=== PATIENT | female | born 1945 | race Caucasian/White ===

== ENCOUNTER 2018-06-17 01:22 | Outpatient (CLI) | payer MEDICARE, OTHER, SELFPAY ==
[2018-06-17 13:06] LABS: BUN 15 mg/dL (7-18); CREATININE 0.61 mg/dL (0.55-1.02); Calcium 9.7 mg/dL (8.5-10.1); Chloride 96 mmol/L (98-107); Glucose 120 mg/dL (70-100); Potassium 4.2 mmol/L (3.5-5.1); Sodium 139 mmol/L (136-145)
== END 2018-06-17 01:42 ==
DX: J44.9 Chronic obstructive pulmonary disease, unspecified (principal); I10 Essential (primary) hypertension; I25.10 Atherosclerotic heart disease of native coronary artery without angina pectoris
CPT/HCPCS: 36415; 80048

== ENCOUNTER 2018-12-22 01:08 | Outpatient (CLI) | payer MEDICARE, OTHER, SELFPAY ==
--- NOTE | 2018-12-22 14:05 | MERGE_ITS ---
*[facility]* *[facility]* [address] [place] [address] Date of study: 12/22/2018 Transthoracic Echocardiography M-mode, complete 2D, complete spectral Doppler, and color Doppler *STUDY CONCLUSIONS* Summary: 1. Left ventricle: The cavity size was normal. Systolic function was hyperdynamic. The estimated ejection fraction was 65-70%. Findings consistent with diastolic dysfunction. Doppler parameters are consistent with high ventricular filling pressure. Stroke volume/bsa (LVOT, Doppler): 50ml/m^2. 2. Aortic valve: There was moderate to severe stenosis. There was mild regurgitation. Peak velocity (S): 3.4m/sec. Mean gradient (S): 29.6mm Hg. VTI ratio of LVOT to aortic valve: 0.28. Valve area (VTI): 0.8cm^2. Indexed valve area (Vmean): 0.6cm^2/m^2. 3. Right ventricle: The cavity size was normal. Wall thickness was normal. Systolic function was normal. 4. Atrial septum: No defect or patent foramen ovale was identified. 5. Tricuspid valve: There was moderate regurgitation. 6. Pulmonary arteries: Pulmonary systolic pressure was in the range of 40mm Hg to 50mm Hg. 7. Inferior vena cava: The vessel was patent and normal in size. The respirophasic diameter changes were in the normal range (greater than or equal to 50%), consistent with normal central venous pressure. *PATIENT PRESENTATION* Height: 149.9cm ((59in) ) S/D Pressure: 132 / 60 Weight: 47.6kg ((104.8lb) ) BSA: 1.41m^2 Test start time: 02:10 PM. Test stop time: 03:15 PM. PERFORMING Unknown PERFORMING [facility] ORDERING Faye Gupta REFERRING Faye Gupta BALLET SOLOIST Geeta Bertha, RT (R)(CT), [facility] *PROCEDURE DATA* Procedure information: This study was interpreted by [facility]. Pertinent images and digital data are archived for permanent storage and are available for subsequent review. Comparison was made to the study of December 2016. Study status: Routine. Transthoracic echocardiography. M-mode, complete 2D, complete spectral Doppler, and color Doppler. A Transthoracic Echocardiogram was performed. Scanning was performed from the parasternal, apical, subcostal, and suprasternal notch acoustic windows. Images were obtained using an [id number] cardiac ultrasound machine. Image quality was good. Study completion: The patient tolerated the procedure well. History: PMH: Screening-COPD and Cough. ASCVD I25.10. *CARDIAC ANATOMY* Left ventricle: The cavity size was normal. Systolic function was hyperdynamic. The estimated ejection fraction was 65-70%. The tissue Doppler parameters were abnormal. Findings consistent with diastolic dysfunction. Doppler parameters are consistent with high ventricular filling pressure. Aortic valve: Severely thickened, severely calcified leaflets. Doppler: There was moderate to severe stenosis. There was mild regurgitation. VTI ratio of LVOT to aortic valve: 0.28. Valve area (VTI): 0.8cm^2. Indexed valve area (VTI): 0.6cm^2/m^2. Peak velocity ratio of LVOT to aortic valve: 0.28. Valve area (Vmax): 0.8cm^2. Indexed valve area (Vmax): 0.6cm^2/m^2. Mean velocity ratio of LVOT to aortic valve: 0.27. Valve area (Vmean): 0.8cm^2. Indexed valve area (Vmean): 0.6cm^2/m^2. Mean gradient (S): 29.6mm Hg. Peak gradient (S): 46.9mm Hg. Aorta: Aortic root: The aortic root was normal in size. Ascending aorta: The ascending aorta was normal in size. Mitral valve: Doppler: There was no evidence for stenosis. There was no significant regurgitation. Valve area by pressure half-time: 3.7cm^2. Indexed valve area by pressure half-time: 2.6cm^2/m^2. Peak gradient (D): 3.9mm Hg. Left atrium: The atrium was normal in size. Atrial septum: No defect or patent foramen ovale was identified. Right ventricle: The cavity size was normal. Wall thickness was normal. Systolic function was normal. Pulmonic valve: Doppler: There was no evidence for stenosis. There was mild regurgitation. Tricuspid valve: Doppler: There was moderate regurgitation. Pulmonary artery: Poorly visualized. Pulmonary systolic pressure was in the range of 40mm Hg to 50mm Hg. Right atrium: The atrium was normal in size. Pericardium: There was no pericardial effusion. Systemic veins: Inferior vena cava: Well visualized. The vessel was patent and normal in size. The respirophasic diameter changes were in the normal range (greater than or equal to 50%), consistent with normal central venous pressure. Baseline ECG: Normal sinus rhythm. Measurements Left ventricle Value 12/27/2016 Reference LV ID, ED, PLAX 4.1 cm 4.3 3.5 - 6.0 LV ID, ES, PLAX 2.2 cm 2.8 2.1 - 4.0 LV PW thickness, ED, PLAX 1.1 cm 1.0 LV end-diastolic volume, 65 ml 27 1-p A2C LV ejection fraction, 1-p 62 % 57 A2C LV end-diastolic volume, 44 ml 46 1-p A4C LV ejection fraction, 1-p 63 % 70 A4C LV e', lateral 0.055 m/sec LV E/e', lateral 18 LV e', medial 0.074 m/sec LV E/e', medial 13 LV e', average 0.065 m/sec LV E/e', average 15 Ventricular septum Value 12/27/2016 Reference IVS thickness, ED, PLAX 1.1 cm 0.8 LVOT Value 12/27/2016 Reference LVOT ID, A-P 1.9 cm 1.9 LVOT area 2.9 cm^2 2.8 LVOT peak velocity, S 0.96 m/sec 1.12 LVOT mean velocity, S 0.71 m/sec LVOT VTI, S 24.4 cm 24.6 LVOT peak gradient, S 3.7 mm Hg 5 LVOT mean gradient, S 2.2 mm Hg 3 Stroke volume (SV), LVOT 71 ml DP Stroke index (SV/bsa), 50 ml/m^2 LVOT DP Aortic valve Value 12/27/2016 Reference Aortic valve peak 3.4 m/sec 3.1 velocity, S Aortic valve mean 2.62 m/sec velocity, S Aortic valve VTI, S 86.0 cm Aortic mean gradient, S 29.6 mm Hg 21 Aortic peak gradient, S 46.9 mm Hg 37.2 VTI ratio, LVOT/AV 0.28 0.35 Aortic valve area, VTI 0.8 cm^2 1 Velocity ratio, peak, 0.28 0.37 LVOT/AV Aortic valve area, peak 0.8 cm^2 1 velocity Velocity ratio, mean, 0.27 LVOT/AV Aortic valve area, mean 0.8 cm^2 velocity Aortic valve area/bsa, 0.6 cm^2/m^2 mean velocity Aorta Value 12/27/2016 Reference Aortic root ID, ED 2.6 cm 2.8 Ascending aorta ID, A-P, S 2.9 cm 2.8 Left atrium Value 12/27/2016 Reference LA ID/bsa, A-P 2.1 cm/m^2 <=2.2 LA area, ES, A4C 16.3 cm^2 15 8.8 - 23.4 LA area, ES, A2C 12 cm^2 LA volume/bsa, ES, 1-p A4C 33 ml/m^2 29 LA volume, ES, 2-p 37 ml LA volume/bsa, ES, 2-p 26 ml/m^2 LA/aortic root ratio 1.17 Mitral valve Value 12/27/2016 Reference Mitral E-wave peak 0.98 m/sec 1.01 velocity Mitral A-wave peak 1.19 m/sec 1.1 velocity Mitral deceleration time 203 ms 150 - 230 Mitral pressure half-time 59 ms 76 Mitral peak gradient, D 3.9 mm Hg 4.1 Mitral E/A ratio, peak 0.83 0.92 Mitral valve area, PHT, DP 3.7 cm^2 2.9 Pulmonary veins Value 12/27/2016 Reference Pulmonary vein peak 0.61 m/sec 0.75 velocity, S Pulmonary vein peak 0.52 m/sec 0.59 velocity, D Pulmonary vein velocity 1.17 1.27 ratio, peak, S/D Pulmonary vein A-wave 0.42 m/sec 0.37 reversal peak velocity Tricuspid valve Value 12/27/2016 Reference Tricuspid regurg peak 3.5 m/sec 3.3 velocity Tricuspid peak RV-RA 47.7 mm Hg 44.4 gradient Right atrium Value 12/27/2016 Reference RA area, ES, A4C 14.9 cm^2 9 8.3 - 19.5 Legend: (L) and (H) ramírez values outside specified reference range. I have personally reviewed the images and have reviewed and edited the reported findings. Electronically signed by Hector Gordon MD 12/22/2018 16:53
== END 2018-12-22 01:28 ==
DX: I25.10 Atherosclerotic heart disease of native coronary artery without angina pectoris (principal); I06.2 Rheumatic aortic stenosis with insufficiency; I07.2 Rheumatic tricuspid stenosis and insufficiency; I50.1 Left ventricular failure, unspecified; J44.9 Chronic obstructive pulmonary disease, unspecified; R05 Cough
CPT/HCPCS: 93306

== ENCOUNTER 2018-12-31 02:24 | Outpatient (CLI) | payer MEDICARE, OTHER, SELFPAY ==
[2018-12-31 14:12] LABS: ALT 33 U/L (12-78); AST 21 U/L (15-37); Albumin 3.4 g/dL (3.4-5.0); Alkaline Phosphatase 65 U/L (46-116); Anion Gap 5.5 mmol/L (3-11); BUN 11 mg/dL (7-18); Bilirubin, Total 0.4 mg/dL (0.2-1.0); CO2 35.5 mmol/L (21.0-32.0); Chloride 102 mmol/L (98-107); Glucose 94 mg/dL (70-100); Potassium 4.8 mmol/L (3.5-5.1); Sodium 143 mmol/L (136-145)
== END 2018-12-31 02:44 ==
DX: I10 Essential (primary) hypertension (principal); J44.9 Chronic obstructive pulmonary disease, unspecified
CPT/HCPCS: 36415; 80053

== ENCOUNTER 2021-01-12 02:27 | Outpatient (CLI) | payer MEDICARE, OTHER, SELFPAY ==
[2021-01-12 13:10] LABS: ALT 25 U/L (14-59); AST 23 U/L (15-37); Albumin 3.4 g/dL (3.4-5.0); Alkaline Phosphatase 57 U/L (46-116); BUN 11 mg/dL (7-18); Bilirubin, Total 0.4 mg/dL (0.2-1.0); CREATININE 0.6 mg/dL (0.55-1.02); Calcium 9.2 mg/dL (8.5-10.1); Chloride 103 mmol/L (98-107); Glucose 97 mg/dL (74-106); Potassium 4.6 mmol/L (3.5-5.1); Sodium 142 mmol/L (136-145); Total Protein 6.8 g/dL (6.4-8.2)
== END 2021-01-12 02:28 | disposition home or self-care (01) ==
LOC: LOS 02:28
DX: I10 Essential (primary) hypertension (principal)
CPT/HCPCS: 36415; 80053

== ENCOUNTER 2023-04-27 16:59 | Observation (INO) | payer MEDICARE, OTHER, SELFPAY ==
[2023-04-27 16:58] VITALS: BP 165/59; PULSE 119; RESP 22; O2SAT 74
[2023-04-27 17:05] VITALS: O2SAT 77
[2023-04-27 17:21] VITALS: RESP 24
[2023-04-27] MEDS: Normal Saline 1,000 ML 1000 ML IV (17:21)
[2023-04-27] MEDS: Albuterol/Ipratropium 3 ML UPD VIAL UPD (17:21)
[2023-04-27 17:25] VITALS: O2SAT 95
--- NOTE | 2023-04-27 17:27 | W.ED.GENAD ---
Discharge Plan Disposition Patient Disposition: Admit to [facility] Condition: Poor Discharge Details Chief Complaint: RespSymp Clinical Impression: Hypoxia, General weakness, Comfort measures only status Primary Care Provider: Raul Amador ED Provider: Hector Esqueda Home Meds and New Rx's Prescriptions: No Action aspirin [Aspir-81] 81 MG tablet,delayed release (DR/EC) 81 mg PO DAILY naproxen sodium [Aleve] 220 MG tablet 220 mg PO PRN (DME) [employer] Chamber 1 EACH spacer 1 ea Miscellaneous DIRECTED CENTRUM SILVER TABLET 1 EACH tablet 1 tab PO DAILY ipratropium-albuterol 3 ML solution for nebulization 3 ml Inhalation Q4H PRN Qty: 1 amlodipine 2.5 mg tablet 2.5 mg PO DAILY Qty: 90 3RF Rx Instructions: take in addition to 5 mg tab daily amlodipine 5 mg tablet 5 mg PO DAILY Qty: 90 3RF Rx Instructions: take one daily in addition to 2.5 mg daily lisinopril 20 mg tablet 20 mg PO DAILY Qty: 90 4RF simvastatin [Zocor] 20 mg tablet 20 mg PO DAILY Qty: 90 4RF metoprolol succinate 50 mg tablet extended release 24 hr 50 mg PO DAILY Qty: 90 3RF albuterol sulfate [Ventolin HFA] 90 mcg/actuation HFA aerosol inhaler 2 puff IH Q4H PRN (Reason: shortness of breath or wheezing) Qty: 25.5 6RF Medical Decision Making 77 yo female with hx of oxygen dependent copd, htn, cad, who comes in with ems after family found her covered in urine and feces and unable to get off her couch. She apparently has had general weakness and a few falls where she's slipped off the couch and landed on the ground. She arrives hypoxic in the 70s and on 10L NRB is 89%. She is alert and can tell me her name, where she is and time. She denies chest pain, fevers, has some dyspnea and cough. She is very cachectic and frail appearing. 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 I reviewed this with her daughter who is her dpoa and she states that she knew she is dnr/dni but did not know about the do not transfer to the hospital order or agriculture extension specialist she wished to be, pt does state this is still her goal and would want to go home without testing or interventions. Family states they want to honor this wish but don't believe she can safely go home. Family and pt will converse with each other to determine what they would want done and will honor patient's wishes for agriculture extension specialist and no testing unless she changes her mind. Labs and xray cancelled for now. After discussing with family daughter doesn't feel comfortable having her sent back home in her current state as she can't even get out of her bed or lift her head up off the bed. They would like to have her observed and made comfortable, had pain at sites of her pressure sores on her back and would like to meet with at least care management to try and arrange for hospital bed for either her house of her daughter's house. Will discuss with hospitalist about admission Differential Diagnosis Differential Diagnosis: copd, pneumonia, pe Medical Records Medical records reviewed: Yes I reviewed the patient's medical records. HPI General Mode of arrival: EMS. Date/Time Provider Initiated Documentation: 04/27/23 16:59. Information obtained by: patient and family. History of Present Illness 77 year old F presents to the emergency department with the chief complaint of unable to get off couch, described as severe, Patient started experiencing this week(s) (1) and it has been constant. No relieving factors improve symptom(s), No exacerbating factors reported . Patient did receive the following treatments prior to arrival, none Related Data Home Medications Medication Instructions Recorded Confirmed Centrum Silver Tablet 1 tab PO DAILY 12/29/12 01/02/21 aspirin 81 mg tablet,delayed 81 mg PO DAILY 12/29/12 01/02/21 release (Aspir-) inhalational spacing device 12/29/12 01/02/21 ([employer] Chamber) naproxen sodium 220 mg tablet 220 mg PO PRN 12/29/12 01/02/21 (Aleve) ipratropium 0.5 mg-albuterol 3 mg 3 ml inhalation Q4H PRN ##1 12/20/16 01/02/21 (2.5 mg base)/3 mL nebulization soln amlodipine 2.5 mg tablet 2.5 mg PO DAILY #90 tab-caps 06/13/21 amlodipine 5 mg tablet 5 mg PO DAILY #90 tab-caps 06/13/21 lisinopril 20 mg tablet 20 mg PO DAILY #90 tab-caps 06/13/21 simvastatin 20 mg tablet (Zocor) 20 mg PO DAILY #90 tab-caps 06/13/21 metoprolol succinate 50 mg 50 mg PO DAILY #90 tabs 09/21/21 tablet,extended release 24 hr albuterol sulfate 90 mcg/actuation 2 puff inhalation Q4H PRN 11/05/22 aerosol inhaler (Ventolin HFA) shortness of breath or wheezing #25.5 grams Previous Rx's Medication Instructions Recorded amlodipine 2.5 mg tablet 2.5 mg PO DAILY #90 tab-caps 06/13/21 amlodipine 5 mg tablet 5 mg PO DAILY #90 tab-caps 06/13/21 lisinopril 20 mg tablet 20 mg PO DAILY #90 tab-caps 06/13/21 simvastatin 20 mg tablet (Zocor) 20 mg PO DAILY #90 tab-caps 06/13/21 metoprolol succinate 50 mg 50 mg PO DAILY #90 tabs 09/21/21 tablet,extended release 24 hr albuterol sulfate 90 mcg/actuation 2 puff inhalation Q4H PRN 11/05/22 aerosol inhaler (Ventolin HFA) shortness of breath or wheezing #25.5 grams Allergies Allergy/AdvReac Type Severity Reaction Status Date / Time No Known Allergies Allergy Verified 06/22/19 13:02 General Stated Complaint: RespSymp CHRIS: 2 Review of Systems All systems reviewed & are unremarkable except as noted in HPI and below Constitutional Constitutional: Denies chills and Denies fever(s) Cardiovascular Cardiovascular: Denies chest pain and Reports dyspnea Respiratory Respiratory: Reports cough and Reports dyspnea Gastrointestinal Gastrointestinal: Denies abdominal pain, Denies nausea and Denies vomiting Integumentary/Breasts Skin/Breast: Denies rash Psychiatric Psychiatric: Denies depression PFSH All Active Problems (Updated 04/27/23 @ 19:22 by Hector Esqueda MD) Hypoxia (Acute) General weakness (Acute) Comfort measures only status (Acute) Episodic lightheadedness (Acute) Memory loss (Acute) Advanced directives, counseling/discussion (Acute) Varicose veins of lower extremity (Chronic) Solitary pulmonary nodule (Chronic 01/20/13) 10/30-stable 07/02 stable 06/21/17 - stable Smoker (Chronic 01/06/13) Lipoma (Chronic) arm; on U/S Hypertension (Chronic 01/15/14) Hyperlipidemia (Chronic) Chronic obstructive lung disease (Chronic 01/06/13) severe; PFT's Cardiac murmur, unspecified (Chronic) echo 05/30 mild aortic sclerosis no stenosis echo 06/01 mild Echo 12/22/18 - Est. EF 65-70%, Pulmonary systolic pressure 40-50 range, Aortic valve with MOD-SEVERE stenosis Acquired kyphosis (Chronic) ASCVD (arteriosclerotic cardiovascular disease) (Chronic 05/01/12) S/P carotid endarterectomy Medical History (Updated 04/27/23 @ 19:22 by Hector Esqueda MD) Screening for breast cancer (06/19/16) Surgical History PROCEDURES ENDARTERECTOMY Echocardiogram, 2008 INCREASED PULM. ARTERY PRESSURE, RIGHT VENTRICULAR HYPOKINEA Family History Mother Essential hypertension Personal history of malignant neoplasm throat Heart disease Hyperlipidemia Myocardial infarction Father Essential hypertension Heart disease Hyperlipidemia Sister Personal history of malignant neoplasm pulmonary fibrosis Brother , drowned at age 29. Essential hypertension Hyperlipidemia Grandfather Personal history of malignant neoplasm throat Grandfather Stroke Grandmother Stroke Grandmother No problems noted. Sister Heart disease angina Sister No problems noted. Sister Diabetes Essential hypertension Sister No problems noted. Brother Personal history of malignant neoplasm Heart disease Brother Essential hypertension Hyperlipidemia Brother No problems noted. Brother No problems noted. Brother Essential hypertension Hyperlipidemia Brother Essential hypertension Heart disease by-pass Hyperlipidemia Brother Diabetes Essential hypertension Heart disease Hyperlipidemia Brother Essential hypertension Hyperlipidemia Social History Smoking risk assessment performed?: No Exam Const General: frail appearing Orientation: alert [facility] Head: normal to inspection Ears: external ears normal General nose exam: external nose normal Mouth: moist mucous membranes Eyes General: appearance normal, both eyes and all related structures Neck Neck: normal visual inspection Resp Auscultation: wheezes Cardio Rate: regular rate GI Palpation: soft and nontender Skin General skin exam: no rashes or lesions noted Neuro General: patient alert and patient oriented x3 Extrem General: normal to inspection Psych Mental Status: mental status grossly normal Course Vital Signs Vital signs: Vital Signs Pulse 119 H 04/27/23 16:58 Respiratory Rate 22 04/27/23 16:58 Blood Pressure 165/59 H 04/27/23 16:58 Pulse Oximetry 74 L 04/27/23 16:58 Pulse 119 H 04/27/23 16:58 Respiratory Rate 22 04/27/23 16:58 Blood Pressure 165/59 H 04/27/23 16:58 Pulse Oximetry 74 L 04/27/23 16:58 Oxygen Delivery Method Non-Rebreather 04/27/23 16:58 Oxygen Flow Rate 15 04/27/23 16:58 End Tidal Co2 41 04/27/23 16:58 Lab/Test Results Lab/Test Results: 04/27/23 17:00 Blood Blood Culture - Pending 04/27/23 17:00 Blood Blood Culture - Pending Laboratory Tests Range/Units 04/27/23 04/27/23 04/27/23 17:00 17:00 17:00 VBG pH VBG pCO2 VBG pO2 VBG HCO3 VBG Total CO2 VBG O2 Saturation VBG Base Excess VBG Lactate Cancelled Sodium Cancelled Potassium Cancelled Chloride Cancelled Carbon Dioxide Cancelled Anion Gap Cancelled BUN Cancelled Creatinine Cancelled Est GFR (CKD-EPI 2020) Cancelled Glucose Cancelled Calcium Cancelled Magnesium Cancelled Total Bilirubin Cancelled AST Cancelled ALT Cancelled Alkaline Phosphatase Cancelled Troponin I Cancelled NT-Pro-B Natriuret Pep Cancelled Total Protein Cancelled Albumin Cancelled Procalcitonin Cancelled TSH Cancelled COVID-19 Source Cancelled SARS-CoV-2 (PCR) Cancelled Range/Units 04/27/23 04/27/23 17:00 20:00 VBG pH Cancelled VBG pCO2 Cancelled VBG pO2 Cancelled VBG HCO3 Cancelled VBG Total CO2 Cancelled VBG O2 Saturation Cancelled VBG Base Excess Cancelled VBG Lactate Sodium Potassium Chloride Carbon Dioxide Anion Gap BUN Creatinine Est GFR (CKD-EPI 2020) Glucose Calcium Magnesium Total Bilirubin AST ALT Alkaline Phosphatase Troponin I Cancelled NT-Pro-B Natriuret Pep Total Protein Albumin Procalcitonin TSH COVID-19 Source SARS-CoV-2 (PCR)
[2023-04-27 17:29] VITALS: O2SAT 89
--- NOTE | 2023-04-27 19:27 | NUR.NOTE ---
Nursing Note: patient los area covered in dried BM, bilat buttox reddened blanchable. 4cmX1.5cm DTI to Coccyx
[2023-04-27] MEDS: MORPHine 10 MG/ML VIAL 2 MG IVP (19:43)
[2023-04-27 20:55] VITALS: BP 159/77; PULSE 103; RESP 24; TEMP 37; O2SAT 79
--- NOTE | 2023-04-27 21:53 | W.PM.HP.N ---
Date of service: 04/27/23 Time of Service: 21:53 Assessment and Plan Assessment and plan (1) Acute and chronic respiratory failure with hypoxia: Start date: 04/27/23 Status: Acute Assessment and plan: This is a 77-year-old lady with end-stage COPD becoming increasingly weak from lack of intake wanting not to be forced better force hydrated and not have testing done presenting with severe hypoxemia compared to baseline on home O2 at 2 L/min per nasal cannula and responding to 10 L/min nasal with nonrebreather and 89% pulse oximeter in the ED when more clear minded and stated her clear decisions to not have treatment. She is not be monitored presently on 2 L/min nasal cannula. (2) Altered mental status: Start date: 04/27/23 Status: Acute Assessment and plan: Secondary to hypoxemia with patient now confused again on supportive care and of high flow oxygen. (3) Fall: Start date: 04/27/23 Status: Acute Assessment and plan: Secondary to generalized weakness most likely from dehydration malnutrition with recent decreased intake. She appears to have no clinical fractures but some bruising on her left side. She did not allow imaging or labs. Comfort measures. History of Present Illness History of Present Illness Chief Complaint: Generalized weakness with inability to care for self at home, falls Narrative: This is a 77-year-old female patient who lives alone and adamantly does not wish to have others in her home to care for her wanting to stay home to . She has no plan as to how to accomplish this except that she refuses care. For the last 1 to 2 weeks she has not had much to eat or drink and had increased falls recently becoming weak and not able to get off the couch. She did have a recent fall on her left side injuring her left upper extremity but having no other discomfort except that she could not stand because of weakness. She denies any extremity pain. She was found to be hypoxic at home on her usual 2 L/min per nasal cannula usual oxygen therapy which did respond to a higher flow of oxygen with nonrebreather. She did have some confusion at home with her hypoxemia according to the family with decreased memory but in the ED was alert and oriented x3 with oxygenation. She refuses labs or imaging and actually wanted [facility] measures and did not transfer to the hospital as per her DNR/DNI status. As stated she did not have a good plan as accomplish this with family not allowed to live with her. Family was often checking on her and has been finding her on the floor recently. She does have incontinence of urine and stool because of inability to make it to the bathroom and as stated has had less intake with less output as well. She is extremely weak and cannot lift her head off the bed verbalizing that she cannot go home alone at this time. Her daughter is DPOA and has plans to speak to palliative care about hospice care at home if the patient survives this hospitalization. She did receive some IV fluids which will not be continued and she will maintain an IV saline lock for comfort treatment. She also will have a Charles catheter for comfort if she is incontinent of urine. She has did refused any labs, imaging or interventions. She was alert and oriented when making this restatement which is consistent with her CODE STATUS form and medical care wishes though there is some discrepancy and communication with her daughter who is the DPOA. Her daughter was present during my conversation with the patient who was not responding appropriately and tearful stating that her mother will not not return home alone but to her home if she goes home on hospice. Review of Systems Narrative: 13 point review of systems otherwise unobtainable. PFSH All Active Problems Altered mental status (Acute) Fall (Acute) Acute and chronic respiratory failure with hypoxia (Acute) Hypoxia (Acute) General weakness (Acute) Comfort measures only status (Acute) Episodic lightheadedness (Acute) Memory loss (Acute) Advanced directives, counseling/discussion (Acute) Varicose veins of lower extremity (Chronic) Solitary pulmonary nodule (Chronic 01/20/13) 10/30-stable 07/02 stable 06/21/17 - stable Smoker (Chronic 01/06/13) Lipoma (Chronic) arm; on U/S Hypertension (Chronic 01/15/14) Hyperlipidemia (Chronic) Chronic obstructive lung disease (Chronic 01/06/13) severe; PFT's Cardiac murmur, unspecified (Chronic) echo 05/30 mild aortic sclerosis no stenosis echo 06/01 mild Echo 12/22/18 - Est. EF 65-70%, Pulmonary systolic pressure 40-50 range, Aortic valve with MOD-SEVERE stenosis Acquired kyphosis (Chronic) ASCVD (arteriosclerotic cardiovascular disease) (Chronic 05/01/12) S/P carotid endarterectomy Medical History Screening for breast cancer (06/19/16) Surgical History PROCEDURES ENDARTERECTOMY Echocardiogram, 2008 INCREASED PULM. ARTERY PRESSURE, RIGHT VENTRICULAR HYPOKINEA Family History Mother Essential hypertension Personal history of malignant neoplasm throat Heart disease Hyperlipidemia Myocardial infarction Father Essential hypertension Heart disease Hyperlipidemia Sister Personal history of malignant neoplasm pulmonary fibrosis Brother , drowned at age 29. Essential hypertension Hyperlipidemia Grandfather Personal history of malignant neoplasm throat Grandfather Stroke Grandmother Stroke Grandmother No problems noted. Sister Heart disease angina Sister No problems noted. Sister Diabetes Essential hypertension Sister No problems noted. Brother Personal history of malignant neoplasm Heart disease Brother Essential hypertension Hyperlipidemia Brother No problems noted. Brother No problems noted. Brother Essential hypertension Hyperlipidemia Brother Essential hypertension Heart disease by-pass Hyperlipidemia Brother Diabetes Essential hypertension Heart disease Hyperlipidemia Brother Essential hypertension Hyperlipidemia Social History Smoking/Tobacco Use Status: Former Tobacco Use Smoking risk assessment performed?: Yes Alcohol Intake: former Substance use type: does not use Housing: house Additional Social history: patient lives at home alone. EMS reports poor living conditions Meds Allergies and Home Medications Allergies Allergy/AdvReac Type Severity Reaction Status Date / Time No Known Allergies Allergy Verified 06/22/19 13:02 Home Medications Medication Instructions Recorded Confirmed Type Centrum Silver Tablet 1 tab PO DAILY 12/29/12 01/02/21 History aspirin 81 mg tablet,delayed 81 mg PO DAILY 12/29/12 01/02/21 History release (Aspir-) inhalational spacing device 12/29/12 01/02/21 History ([employer]) naproxen sodium 220 mg tablet 220 mg PO PRN 12/29/12 01/02/21 History (Aleve) ipratropium 0.5 mg-albuterol 3 mg 3 ml inhalation Q4H PRN ##1 12/20/16 01/02/21 History (2.5 mg base)/3 mL nebulization soln amlodipine 2.5 mg tablet 2.5 mg PO DAILY #90 tab-caps 06/13/21 Rx amlodipine 5 mg tablet 5 mg PO DAILY #90 tab-caps 06/13/21 Rx lisinopril 20 mg tablet 20 mg PO DAILY #90 tab-caps 06/13/21 Rx simvastatin 20 mg tablet (Zocor) 20 mg PO DAILY #90 tab-caps 06/13/21 Rx metoprolol succinate 50 mg 50 mg PO DAILY #90 tabs 09/21/21 Rx tablet,extended release 24 hr albuterol sulfate 90 mcg/actuation 2 puff inhalation Q4H PRN 11/05/22 Rx aerosol inhaler (Ventolin HFA) shortness of breath or wheezing #25.5 grams Exam Narrative Exam Narrative: General: Patient appears older than stated age, unkempt and chronically ill. She is not responding to verbal stimuli or answer my questions having no further IV fluids and on oxygen but now more confused with hypoxemia not being monitored. HEENT: Normocephalic with coarsened facial features, eyes with pupils equal and react light symmetrically but increased amount of white thick exudate over both eyes with eyelids difficult to open but no erythema or purulent drainage. Sclera anicteric. Oropharynx with dry mucosa. Neck: Supple without JVD. Back: Kyphotic without CVA tenderness. Lungs: Bronchovesicular breath sounds diffusely with decreased aeration on the left compared to right and increased expiratory phase and expiratory wheeze on the right with fair to poor aeration. No focalizing expiratory rales or rhonchi. Poor inspiratory effort. Heart: Irregular rhythm with normal rate borderline tachycardia. 4/6 to 5/6 systolic murmur left sternal border with gallop appreciated. No rubs. Breast: Exam deferred. Abdomen: Scaphoid contour, soft nontender to palpation with no palpable hepatosplenomegaly. Bowel sounds are hypoactive but present in all quadrants. Genitalia/rectal: Exam deferred. Extremities: Without clubbing, cyanosis or pitting edema with muscle wasting diffusely. Bruising of the left upper extremity with fair passive range of motion of all joints without tenderness. Exam is limited. No mottling and fair capillary refill. Skin: Bruising over left lower extremity otherwise pale, warm and dry. Neuro: Cranial nerves II through XII appear to be grossly intact, no focal motor deficits palpation generally weak. No tremor. Psych: Flattened affect and depressed mood. Patient is cephalopathic with her hypoxemia. No abnormal thought processes. Remote and recent memory the time I examined patient was not obtainable the patient more obtunded. She was answering questions appropriately and is alert and oriented x3 when seen by the ED physician after some IV fluids and better oxygenation. Results Labs 04/27/23 17:00 04/27/23 17:00 Labs: Laboratory Results - last 24 hr 04/27/23 04/27/23 04/27/23 17:00 17:00 17:00 WBC RBC Hgb Hct MCV MCH MCHC RDW Plt Count MPV Immature Gran % Neutrophils % Band Neutrophils % Lymphocytes % Atypical Lymphs % Monocytes % Eosinophils % Basophils % Metamyelocytes % Myelocytes % Promyelocytes % Other Cells % Nucleated RBC % Absolute Neutrophils Absolute Lymphocytes Absolute Monocytes Absolute Eosinophils Absolute Basophils RBC Morphology Polychromasia Hypochromasia Poikilocytosis Basophilic Stippling Anisocytosis Microcytosis Macrocytosis Spherocytes Tear Drop Cells Ovalocytes Stomatocytes [place] Bodies Abbi Cells/Echinocytes Acanthocytes (Spur) Schistocytes PT INR APTT VBG pH VBG pCO2 VBG pO2 VBG HCO3 VBG Total CO2 VBG O2 Saturation VBG Base Excess VBG Lactate Cancelled Sodium Cancelled Potassium Cancelled Chloride Cancelled Carbon Dioxide Cancelled Anion Gap Cancelled BUN Cancelled Creatinine Cancelled Est GFR (CKD-EPI 2020) Cancelled Glucose Cancelled Calcium Cancelled Magnesium Cancelled Total Bilirubin Cancelled AST Cancelled ALT Cancelled Alkaline Phosphatase Cancelled Troponin I Cancelled NT-Pro-B Natriuret Pep Cancelled Total Protein Cancelled Albumin Cancelled Procalcitonin Cancelled TSH Cancelled COVID-19 Source Cancelled SARS-CoV-2 (PCR) Cancelled 04/27/23 04/27/23 04/27/23 17:00 17:00 17:00 WBC Cancelled RBC Cancelled Hgb Cancelled Hct Cancelled MCV Cancelled MCH Cancelled MCHC Cancelled RDW Cancelled Plt Count Cancelled MPV Cancelled Immature Gran % Cancelled Neutrophils % Cancelled Band Neutrophils % Cancelled Lymphocytes % Cancelled Atypical Lymphs % Cancelled Monocytes % Cancelled Eosinophils % Cancelled Basophils % Cancelled Metamyelocytes % Cancelled Myelocytes % Cancelled Promyelocytes % Cancelled Other Cells % Cancelled Nucleated RBC % Cancelled Absolute Neutrophils Cancelled Absolute Lymphocytes Cancelled Absolute Monocytes Cancelled Absolute Eosinophils Cancelled Absolute Basophils Cancelled RBC Morphology Cancelled Polychromasia Cancelled Hypochromasia Cancelled Poikilocytosis Cancelled Basophilic Stippling Cancelled Anisocytosis Cancelled Microcytosis Cancelled Macrocytosis Cancelled Spherocytes Cancelled Tear Drop Cells Cancelled Ovalocytes Cancelled Stomatocytes Cancelled [place] Bodies Cancelled [place] Cells/Echinocytes Cancelled Acanthocytes (Spur) Cancelled Schistocytes Cancelled PT Cancelled INR Cancelled APTT Cancelled VBG pH Cancelled VBG pCO2 Cancelled VBG pO2 Cancelled VBG HCO3 Cancelled VBG Total CO2 Cancelled VBG O2 Saturation Cancelled VBG Base Excess Cancelled VBG Lactate Sodium Potassium Chloride Carbon Dioxide Anion Gap BUN Creatinine Est GFR (CKD-EPI 2020) Glucose Calcium Magnesium Total Bilirubin AST ALT Alkaline Phosphatase Troponin I NT-Pro-B Natriuret Pep Total Protein Albumin Procalcitonin TSH COVID-19 Source SARS-CoV-2 (PCR) 04/27/23 20:00 WBC RBC Hgb Hct MCV MCH MCHC RDW Plt Count MPV Immature Gran % Neutrophils % Band Neutrophils % Lymphocytes % Atypical Lymphs % Monocytes % Eosinophils % Basophils % Metamyelocytes % Myelocytes % Promyelocytes % Other Cells % Nucleated RBC % Absolute Neutrophils Absolute Lymphocytes Absolute Monocytes Absolute Eosinophils Absolute Basophils RBC Morphology Polychromasia Hypochromasia Poikilocytosis Basophilic Stippling Anisocytosis Microcytosis Macrocytosis Spherocytes Tear Drop Cells Ovalocytes Stomatocytes [place] Bodies [place] Cells/Echinocytes Acanthocytes (Spur) Schistocytes PT INR APTT VBG pH VBG pCO2 VBG pO2 VBG HCO3 VBG Total CO2 VBG O2 Saturation VBG Base Excess VBG Lactate Sodium Potassium Chloride Carbon Dioxide Anion Gap BUN Creatinine Est GFR (CKD-EPI 2020) Glucose Calcium Magnesium Total Bilirubin AST ALT Alkaline Phosphatase Troponin I Cancelled NT-Pro-B Natriuret Pep Total Protein Albumin Procalcitonin TSH COVID-19 Source SARS-CoV-2 (PCR) Last Vital Signs Pulse 119 H 04/27/23 16:58 Resp 24 04/27/23 17:21 BP 165/59 H 04/27/23 16:58 Pulse Ox 89 L 04/27/23 17:29 Time Spent Time spent with Patient: >75 minutes Time was spent: preparing to see the patient(eg.review tests), obtaining and/or reviewing separately otained hiistory, ordering medications,tests, procedures, referring, communicating with other health home care and home health aides teacher, counseling the patient, care coordination and other (Long conversation with daughter who is DPOA about plans of care with [facility] [facility] measures and eventual hospice)
[2023-04-27] MEDS: Scopolamine 1 MG/3 DAYS PATCH TD (22:58)
[2023-04-28] MEDS: MORPHine 4 MG/ML SYR 2 MG IV/SC ×3 (07:46→20:03)
[2023-04-28] MEDS: Refresh PLUS Eye Drops 0.4ml 2 EACH OU (07:47)
[2023-04-28 08:33] VITALS: O2SAT 89
--- NOTE | 2023-04-28 09:54 | PGE_ITS ---
Date of Service Date of service: 04/28/23 Time of Service: 09:54 Assessment and Plan Assessment and plan (1) Comfort measures only status: Status: Acute Assessment and plan: Consult Hospice per patients wishes. Comfort orders in place. (2) Acute and chronic respiratory failure with hypoxia: Start date: 04/27/23 Status: Acute Assessment and plan: This is a 77-year-old lady with end-stage COPD becoming increasingly weak from lack of intake wanting not to be forced better force hydrated and not have testing done presenting with severe hypoxemia compared to baseline on home O2 at 2 L/min per nasal cannula and responding to 10 L/min nasal with nonrebreather and 89% pulse oximeter in the ED when more clear minded and stated her clear decisions to not have treatment. She is not be monitored presently on 2 L/min per nonrebreather. (3) Altered mental status: Start date: 04/27/23 Status: Acute Assessment and plan: Secondary to hypoxemia. (4) Fall: Start date: 04/27/23 Status: Acute Assessment and plan: Secondary to generalized weakness most likely from dehydration malnutrition with recent decreased intake. She appears to have no clinical fractures but some bruising on her left side. She did not allow imaging or labs. Comfort measures. Subjective Subjective Patient reports: afebrile; denies vomiting Interval history since last seen: Family members are present. She prefers a non-rebreather face mask to a nasal cannula. Exam Narrative Exam Narrative: Gen: lying supine with face mask in place. Appears resteless at one time during the evaluation; trying to turn on to side. She denied any pain. Objective Last Vital Signs Temp 37 C 04/27/23 20:55 Pulse 103 H 04/27/23 20:55 Resp 24 04/27/23 20:55 BP 159/77 H 04/27/23 20:55 Pulse Ox 89 L 04/28/23 08:33 Laboratory Results - last 24 hr 04/27/23 04/27/23 04/27/23 17:00 17:00 17:00 WBC RBC Hgb Hct MCV MCH MCHC RDW Plt Count MPV Immature Gran % Neutrophils % Band Neutrophils % Lymphocytes % Atypical Lymphs % Monocytes % Eosinophils % Basophils % Metamyelocytes % Myelocytes % Promyelocytes % Other Cells % Nucleated RBC % Absolute Neutrophils Absolute Lymphocytes Absolute Monocytes Absolute Eosinophils Absolute Basophils RBC Morphology Polychromasia Hypochromasia Poikilocytosis Basophilic Stippling Anisocytosis Microcytosis Macrocytosis Spherocytes Tear Drop Cells Ovalocytes Stomatocytes [place] Bodies Abbi Cells/Echinocytes Acanthocytes (Spur) Schistocytes PT INR APTT VBG pH VBG pCO2 VBG pO2 VBG HCO3 VBG Total CO2 VBG O2 Saturation VBG Base Excess VBG Lactate Cancelled Sodium Cancelled Potassium Cancelled Chloride Cancelled Carbon Dioxide Cancelled Anion Gap Cancelled BUN Cancelled Creatinine Cancelled Est GFR (CKD-EPI 2020) Cancelled Glucose Cancelled Calcium Cancelled Magnesium Cancelled Total Bilirubin Cancelled AST Cancelled ALT Cancelled Alkaline Phosphatase Cancelled Troponin I Cancelled NT-Pro-B Natriuret Pep Cancelled Total Protein Cancelled Albumin Cancelled Procalcitonin Cancelled TSH Cancelled COVID-19 Source Cancelled SARS-CoV-2 (PCR) Cancelled 04/27/23 04/27/23 04/27/23 17:00 17:00 17:00 WBC Cancelled RBC Cancelled Hgb Cancelled Hct Cancelled MCV Cancelled MCH Cancelled MCHC Cancelled RDW Cancelled Plt Count Cancelled MPV Cancelled Immature Gran % Cancelled Neutrophils % Cancelled Band Neutrophils % Cancelled Lymphocytes % Cancelled Atypical Lymphs % Cancelled Monocytes % Cancelled Eosinophils % Cancelled Basophils % Cancelled Metamyelocytes % Cancelled Myelocytes % Cancelled Promyelocytes % Cancelled Other Cells % Cancelled Nucleated RBC % Cancelled Absolute Neutrophils Cancelled Absolute Lymphocytes Cancelled Absolute Monocytes Cancelled Absolute Eosinophils Cancelled Absolute Basophils Cancelled RBC Morphology Cancelled Polychromasia Cancelled Hypochromasia Cancelled Poikilocytosis Cancelled Basophilic Stippling Cancelled Anisocytosis Cancelled Microcytosis Cancelled Macrocytosis Cancelled Spherocytes Cancelled Tear Drop Cells Cancelled Ovalocytes Cancelled Stomatocytes Cancelled [place] Bodies Cancelled [place] Cells/Echinocytes Cancelled Acanthocytes (Spur) Cancelled Schistocytes Cancelled PT Cancelled INR Cancelled APTT Cancelled VBG pH Cancelled VBG pCO2 Cancelled VBG pO2 Cancelled VBG HCO3 Cancelled VBG Total CO2 Cancelled VBG O2 Saturation Cancelled VBG Base Excess Cancelled VBG Lactate Sodium Potassium Chloride Carbon Dioxide Anion Gap BUN Creatinine Est GFR (CKD-EPI 2020) Glucose Calcium Magnesium Total Bilirubin AST ALT Alkaline Phosphatase Troponin I NT-Pro-B Natriuret Pep Total Protein Albumin Procalcitonin TSH COVID-19 Source SARS-CoV-2 (PCR) 04/27/23 20:00 WBC RBC Hgb Hct MCV MCH MCHC RDW Plt Count MPV Immature Gran % Neutrophils % Band Neutrophils % Lymphocytes % Atypical Lymphs % Monocytes % Eosinophils % Basophils % Metamyelocytes % Myelocytes % Promyelocytes % Other Cells % Nucleated RBC % Absolute Neutrophils Absolute Lymphocytes Absolute Monocytes Absolute Eosinophils Absolute Basophils RBC Morphology Polychromasia Hypochromasia Poikilocytosis Basophilic Stippling Anisocytosis Microcytosis Macrocytosis Spherocytes Tear Drop Cells Ovalocytes Stomatocytes [place] Bodies Abbi Cells/Echinocytes Acanthocytes (Spur) Schistocytes PT INR APTT VBG pH VBG pCO2 VBG pO2 VBG HCO3 VBG Total CO2 VBG O2 Saturation VBG Base Excess VBG Lactate Sodium Potassium Chloride Carbon Dioxide Anion Gap BUN Creatinine Est GFR (CKD-EPI 2020) Glucose Calcium Magnesium Total Bilirubin AST ALT Alkaline Phosphatase Troponin I Cancelled NT-Pro-B Natriuret Pep Total Protein Albumin Procalcitonin TSH COVID-19 Source SARS-CoV-2 (PCR) Time Spent with Patient Time Spent with Patient: 25-34 minutes Time was spent: preparing to see the patient(eg.review tests), obtaining and/or reviewing separately otained hiistory, referring, communicating with other health adult care provider, counseling the patient and care coordination
[2023-04-28] MEDS: Normal Saline Flush 10 ML SYR IVP ×2 (12:41→20:04)
--- NOTE | 2023-04-28 14:21 | INITIAL_ITS ---
Date of service: 04/28/23 Time of Service: 14:21 Care Management Initial Assmt Initial Assessment REASON FOR HOSPITALIZATION:: Acute on Chronic Resp. Failure PREVIOUS FUNCTIONAL STATUS/SOCIAL/FAMILY SUPPORTS:: Keyana appears to he resting comfortably. She is accompanied by her son Maxim, Daughter Michelle and Mal. Per family report, Keyana lives in [place] alone. iM[facility]le shares that Keyana has been too weak to get out of bed for a few weeks and the family are have been helping her with her care needs. CURRENT FUNCTIONAL STATUS:: Keyana is lying in bed and appears to be sleeping. She is surrounded by family. There is a palliative care cart set up in her room. Michelle shares that she and her Mal would like to take Keyana home on Hospice, if she is not imminently dying. Keyana also has a family friend who is a nurse that is willing to help with her care at home. ADVANCE DIRECTIVES:: HCA: Daughter Michelle Fuentes Aubrey Evans. Agent Elo Estrada Has patient been provided with info about the portal/API?: Yes Did the patient sign up for the portal?: No CODE STATUS:: DNR/DNI INSURANCE COVERAGE / FINANCIAL ISSUES:: Medicare [employer] CURRENT HOME/COMMUNITY SERVICES/EQUIPMENT:: Home O2 through [facility] PRIMARY CARE PHYSICIAN:: Raul Colin POTENTIAL DISCHARGE NEEDS:: Hospice, Hospital Bed PATIENT/FAMILY EDUCATION NEEDS:: Review discharge instructions, limitations. Discuss ask me three. ANTICIPATED BARRIERS TO DISCHARGE:: None identified TRANSPORTATION:: Via EMS, if discharging to daughters home on Hospice PLAN:: Keyana is awaiting a Palliative Consult. Her daughter Michelle would like to discuss the possibility of discharging home on Hospice services with a hospital bed. EMS will transport if discharging home on Hospice. CM will follow. PFSH All Active Problems Altered mental status (Acute) Fall (Acute) Acute and chronic respiratory failure with hypoxia (Acute) Hypoxia (Acute) General weakness (Acute) Comfort measures only status (Acute) Episodic lightheadedness (Acute) Memory loss (Acute) Advanced directives, counseling/discussion (Acute) Varicose veins of lower extremity (Chronic) Solitary pulmonary nodule (Chronic 01/20/13) 10/30-stable 07/02 stable 06/21/17 - stable Smoker (Chronic 01/06/13) Lipoma (Chronic) arm; on U/S Hypertension (Chronic 01/15/14) Hyperlipidemia (Chronic) Chronic obstructive lung disease (Chronic 01/06/13) severe; PFT's Cardiac murmur, unspecified (Chronic) echo 05/30 mild aortic sclerosis no stenosis echo 06/01 mild Echo 12/22/18 - Est. EF 65-70%, Pulmonary systolic pressure 40-50 range, Aortic valve with MOD-SEVERE stenosis Acquired kyphosis (Chronic) ASCVD (arteriosclerotic cardiovascular disease) (Chronic 05/01/12) S/P carotid endarterectomy Medical History Screening for breast cancer (06/19/16) Surgical History PROCEDURES ENDARTERECTOMY Echocardiogram, 2008 INCREASED PULM. ARTERY PRESSURE, RIGHT VENTRICULAR HYPOKINEA Family History Mother Essential hypertension Personal history of malignant neoplasm throat Heart disease Hyperlipidemia Myocardial infarction Father Essential hypertension Heart disease Hyperlipidemia Sister Personal history of malignant neoplasm pulmonary fibrosis Brother , drowned at age 29. Essential hypertension Hyperlipidemia Grandfather Personal history of malignant neoplasm throat Grandfather Stroke Grandmother Stroke Grandmother No problems noted. Sister Heart disease angina Sister No problems noted. Sister Diabetes Essential hypertension Sister No problems noted. Brother Personal history of malignant neoplasm Heart disease Brother Essential hypertension Hyperlipidemia Brother No problems noted. Brother No problems noted. Brother Essential hypertension Hyperlipidemia Brother Essential hypertension Heart disease by-pass Hyperlipidemia Brother Diabetes Essential hypertension Heart disease Hyperlipidemia Brother Essential hypertension Hyperlipidemia Social History Smoking/Tobacco Use Status: Former Tobacco Use Smoking risk assessment performed?: Yes Alcohol Intake: former Substance use type: does not use Housing: house Additional Social history: patient lives at home alone. EMS reports poor living conditions
--- NOTE | 2023-04-28 20:29 | NUR.NOTE ---
Nursing Note:Spoke with Michelle (DPLETY) about having the kimbrough catheter placed for pt. She states she would like to forego this if it is not medically necessary at this time. This documentation writer informed her that it was for comfort and to let us know if they change their mind. Will bladder scan pt at next turn to ensure there isn't significant bladder retention at this time.
[2023-04-29] MEDS: MORPHine 4 MG/ML SYR 2 MG IV/SC (02:51)
[2023-04-29] MEDS: Normal Saline Flush 10 ML SYR IVP ×2 (09:43→14:57)
[2023-04-29] MEDS: MORPHine 2 MG/ML SYR IV/SC ×3 (09:43→20:38)
--- NOTE | 2023-04-29 12:24 | CMPROGNOTE_ITS ---
Date of service: 04/29/23 Time of Service: 12:25 Care Management Progress Note Progress Note Text Progress Note Text: S/O: Keyana was resting comfortably when CM met with her; she was surrounded by family in her room. Her daughter, Michelle, stated that they had discussed the option of bringing Keyana home on hospice, but they all agree that it would be best for her to remain inpatient, as per MD, she may not be able to tolerate the ride home. Palliative will meet with them today, and will follow her while inpatient for end of life care. The family has a refreshment cart in the room, and overall are in good spirits, happy to be all together. CM will continue to support Keyana and her family during this difficult time. A: Keyana is a 77 year old female admitted to [facility] for acute on chronic hypoxic respiratory failure. P: Keyana will remain at [facility] for end of life care. Her family has been consistently visiting, providing support to Keyana and each other. CM will discuss final arrangements with Michelle, her daughter, who is also her health care agent. CM will continue to provide support, as needed, to Keyana and her family.
[2023-04-29] MEDS: Ketorolac 15 MG/ML VIAL IVP (14:20)
--- NOTE | 2023-04-29 15:55 | W.PALLCONSUL ---
Date of service: 04/29/23 Time of Service: 15:00 History of Present Illness Narrative: Ms. 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 - respirations are more shallow, periods of 3-5 second pauses in breathing, no garbled sounds or dyspnea noted by family; continues w/oxymask on 2L for comfort, family feels she has been on it for several years and it provides her comfort, makes them more comfortable, aware it may be removed at any time - pain is well controlled w/morphine 2mg PRN, last dose 40 minutes ago w/good effect, along w/toradol; pre-medicating prior to repositioning which had been q2h; some twitching when morphine wears off, resolves w/medications - urine output decreased, dark in color; no recent BM; family reports decreased oral intake for days prior to admission - skin: some itching noted, appears comfortable for now, would like to consider Benadryl; worried about skin irritation w/long toe nails, no skin breakdown on feed noted they feel comfortable in hospital, receiving appropriate information and care; will consider [employer] as a family and request it as needed; Michelle and Celina have been sleeping next to her at nighttime Assessment and Plan Assessment and plan (1) Comfort measures only status: Status: Acute (2) Chronic obstructive lung disease: Status: Chronic Qualifiers: COPD type: emphysema Emphysema type: unspecified Qualified Code(s): J43.9 - Emphysema, unspecified (3) Dying care: Status: Acute (4) Apnea: Status: Acute (5) Pain: Status: Acute (6) Itching: Status: Acute (7) Palliative care encounter: Status: Acute Assessment and plan: Ms. Ridley will remain at [facility] thru EOL, anticipate hours to days remaining, reviewed w/family s/sxs of EOL and what to watch for - continue morphine PRN for pain, dyspnea, w/pre-medicating prior to repositioning; repositioning may be spaced out based on pt/family preference/comfort - continue oxymask at 2L for comfort, reviewed may remove it at anytime - lorazepam 0.5-1mg PRN for myoclonus jerking/twitching if unresolved w/morphine - apap for terminal fever as needed - scopolamine patch on for increased secretions w/atropine available for PRN - Benadryl PRN for itching if needed per family request - antiemetics ordered for PRN use, do not anticipate need at this time - consider gauze as barrier for elongated toe nails as needed if redness/pain/soreness presents as sxs, controlled at this time Reviewed case w/overnight RN and daytime provider, who are both providing excellent care for Ms. Ridley Review of Systems Narrative: as per HPI PFSH All Active Problems (Updated 04/29/23 @ 16:08 by Rhianna Osuna NP) Palliative care encounter (Acute) Itching (Acute) Pain (Acute) Apnea (Acute) Dying care (Acute) Altered mental status (Acute) Fall (Acute) Acute and chronic respiratory failure with hypoxia (Acute) Hypoxia (Acute) General weakness (Acute) Comfort measures only status (Acute) Episodic lightheadedness (Acute) Memory loss (Acute) Advanced directives, counseling/discussion (Acute) Varicose veins of lower extremity (Chronic) Solitary pulmonary nodule (Chronic 01/20/13) 10/30-stable 07/02 stable 06/21/17 - stable Smoker (Chronic 01/06/13) Lipoma (Chronic) arm; on U/S Hypertension (Chronic 01/15/14) Hyperlipidemia (Chronic) Chronic obstructive lung disease (Chronic 01/06/13) severe; PFT's Cardiac murmur, unspecified (Chronic) echo 05/30 mild aortic sclerosis no stenosis echo 06/01 mild Echo 12/22/18 - Est. EF 65-70%, Pulmonary systolic pressure 40-50 range, Aortic valve with MOD-SEVERE stenosis Acquired kyphosis (Chronic) ASCVD (arteriosclerotic cardiovascular disease) (Chronic 05/01/12) S/P carotid endarterectomy Medical History Screening for breast cancer (06/19/16) Surgical History PROCEDURES ENDARTERECTOMY Echocardiogram, 2009 INCREASED PULM. ARTERY PRESSURE, RIGHT VENTRICULAR HYPOKINEA Family History Mother Essential hypertension Personal history of malignant neoplasm throat Heart disease Hyperlipidemia Myocardial infarction Father Essential hypertension Heart disease Hyperlipidemia Sister Personal history of malignant neoplasm pulmonary fibrosis Brother , drowned at age 29. Essential hypertension Hyperlipidemia Grandfather Personal history of malignant neoplasm throat Grandfather Stroke Grandmother Stroke Grandmother No problems noted. Sister Heart disease angina Sister No problems noted. Sister Diabetes Essential hypertension Sister No problems noted. Brother Personal history of malignant neoplasm Heart disease Brother Essential hypertension Hyperlipidemia Brother No problems noted. Brother No problems noted. Brother Essential hypertension Hyperlipidemia Brother Essential hypertension Heart disease by-pass Hyperlipidemia Brother Diabetes Essential hypertension Heart disease Hyperlipidemia Brother Essential hypertension Hyperlipidemia Social History Smoking/Tobacco Use Status: Former Tobacco Use Smoking risk assessment performed?: Yes Alcohol Intake: former Substance use type: does not use Housing: house Additional Social history: patient lives at home alone. EMS reports poor living conditions Exam Narrative Exam Narrative: General: older adult female, lying comfortably in bed, thin/cachetic; non-responsive Resp: RR averaging 10-14 breaths per minute, shallow; w/period of 7 s apnea noted; CTA on limited anteriorlateral exam, diminished at bases Card: regular rate and rhythm, pulses 2+ radial and DP GI: BS hypoactive Ext: warm to touch, pulses 2+, no edema Skin: thin, atrophy dry; nails elongated w/no skin breakdown Results Last Vital Signs Temp 98.6 F 04/27/23 20:55 Pulse 103 H 04/27/23 20:55 Resp 24 04/27/23 20:55 BP 159/77 H 04/27/23 20:55 Pulse Ox 89 L 04/28/23 08:33 Labs 04/27/23 17:00 04/27/23 17:00
--- NOTE | 2023-04-29 17:54 | PGE_ITS ---
Date of Service Date of service: 04/29/23 Time of Service: 17:54 Assessment and Plan Assessment and plan (1) Comfort measures only status: Status: Acute Assessment and plan: Consult Hospice per patients wishes. Comfort orders in place. PRN diphenhydramin added in event there does seem to be pruritus present; possibly from morphine? Palliative care consult appreciated. (2) Acute and chronic respiratory failure with hypoxia: Start date: 04/27/23 Status: Acute Assessment and plan: This is a 77-year-old lady with end-stage COPD becoming increasingly weak from lack of intake wanting not to be forced better force hydrated and not have testing done presenting with severe hypoxemia compared to baseline on home O2 at 2 L/min per nasal cannula and responding to 10 L/min nasal with nonrebreather and 89% pulse oximeter in the ED when more clear minded and stated her clear decisions to not have treatment. She is not be monitored presently on 2 L/min per nonrebreather. Subjective Subjective Patient reports: afebrile; denies vomiting Interval history since last seen: She remains unresponsive most of the time but has occasionally aroused minimally per family. Multiple family members present. Family has noted that on occasion she seems to be scratching at her abd. Exam Narrative Exam Narrative: Gen: Lying supine. Appears comfortable. Facemask in place with 2L O2. Resp: Generally even and nonlabored. Objective Last Vital Signs Temp 37 C 04/27/23 20:55 Pulse 103 H 04/27/23 20:55 Resp 24 04/27/23 20:55 BP 159/77 H 04/27/23 20:55 Pulse Ox 89 L 04/28/23 08:33 Time Spent with Patient Time Spent with Patient: <25 minutes Time was spent: preparing to see the patient(eg.review tests), obtaining and/or reviewing separately otained hiistory, referring, communicating with other health day care teacher and care coordination
[2023-04-29] MEDS: diphenhydrAMINE 50 MG/ML VIAL 25 MG IVP (20:32)
[2023-04-30] MEDS: MORPHine 2 MG/ML SYR IV/SC ×3 (07:15→18:01)
[2023-04-30] MEDS: Normal Saline Flush 10 ML SYR IVP ×3 (07:16→18:02)
[2023-04-30] MEDS: diphenhydrAMINE 50 MG/ML VIAL 25 MG IVP ×2 (07:16→21:07)
--- NOTE | 2023-04-30 10:31 | CHAPLAIN ---
According to Keyana's daughter Michelle, Keyana fell at home a couple of days ago and reluctantly agreed to come to the ED to be checked out. At that point family was willing to take her home, with more support, perhaps hospice. Eventually Keyana was admitted with comfort measures and it was decided by family that she would remain here for end of life care. Several family members have been staying with Keyana, including overnight. Michelle said Keyana is stubborn and will do this her own way. The family appears to be very supportive and Keyana and of each other. Michelle asked that I return this afternoon when her daughter and other family members are here, to offer a prayer with them for Keyana.. I will continue to visit.
--- NOTE | 2023-04-30 12:17 | CMPROGNOTE_ITS ---
Date of service: 04/30/23 Time of Service: 12:17 Care Management Progress Note Progress Note Text Progress Note Text: S/O: Keyana was lying in bed, and appeared comfortable, with a few of her family members by her side when CM met with them. Michelle, her daughter, stated that all of the local family has been in to see Keyana and say their goodbyes. Several other family members who live far away have sent messages to her, which Michelle reads to her. Michelle reported that often when people speak to Keyana, she responds non verbally, by an expression on her face, or other movement. Michelle reported that the family has chosen [facility] in [place] for final arrangements, as they supported the family through the loss of Keyana's many years ago. Michelle stated that various family members will be checking in throughout the day. There is a refreshment cart in the room. CM will continue to follow. A: Keyana is a 77 year old female admitted to [facility] for acute on chronic hypoxic respiratory failure. P: Keyana will remain at [facility] for end of life care. Her family has been consistently visiting, providing support to Keyana and each other. CM will discuss final arrangements with Michelle, her daughter, who is also her health care agent. CM will continue to provide support, as needed, to Keyana and her family.?
--- NOTE | 2023-04-30 14:07 | PHA.REVIEW2 ---
Pharmacy Admission Review Admission Clinical Review Admission Pharmacy Review: (Updated 04/29/23 @ 16:08 by Rhianna Osuna NP) Palliative care encounter (Acute) Itching (Acute) Pain (Acute) Apnea (Acute) Dying care (Acute) Altered mental status (Acute) Fall (Acute) Acute and chronic respiratory failure with hypoxia (Acute) Hypoxia (Acute) General weakness (Acute) Comfort measures only status (Acute) No Known Allergies Allergy (Verified 06/22/19 13:02) Resuscitation Status DNR/DNI Height 4 ft 10 in Weight 45.7 kg Comments Comments/Follow Ups: PAPER TWISTER TENDER, watch for med changes. Pharmacy Admission Review Renal Dosing Renal Dosing: BUN Cancelled 04/27/23 17:00 Creatinine Cancelled 04/27/23 17:00 Medications needing adjustments: N/A (no recent labs, pt is PAPER TWISTER TENDER) Anticoagulation Anticoagulation: Hgb Cancelled 04/27/23 17:00 Hct Cancelled 04/27/23 17:00 Plt Count Cancelled 04/27/23 17:00 INR Cancelled 04/27/23 17:00 Creatinine Cancelled 04/27/23 17:00 DVT Prophylaxis: N/A (Pt is PAPER TWISTER TENDER) Opiate Usage Evaluate Pain Scale/Pains Meds: Reviewed Scheduled Bowel Reg ordered if on Opiates?: No (PRN med ordered) Relevant Labs Relevant Labs: Sodium Cancelled 04/27/23 17:00 Potassium Cancelled 04/27/23 17:00 Chloride Cancelled 04/27/23 17:00 Magnesium Cancelled 04/27/23 17:00 Electrolytes, C-Reactive P, ESR: N/A DM Control DM Control: N/A Cardiac Review Cardiac Review: Troponin I Cancelled 04/27/23 20:00 NT-Pro-B Natriuret Pep Cancelled 04/27/23 17:00 BP, HR, EF%: N/A QTc Review QTc: N/A IV to PO Switch IV Medications: Reviewed Home Meds Home Med List reviewed: N/A Current Meds Current Medication Order Review: Intervened Comments: Adjusted the timing of the scopolamine order based on the medication administration time policy Comments Comments/Follow Ups: PAPER TWISTER TENDER, watch for med changes.
--- NOTE | 2023-04-30 16:45 | CHAPLAIN ---
I gathered with family, Michelle, Mal, Maxim, Elo, Demario, Celina, to offer a prayer with Keyana. She has been unresponsive today. Michelle talked about Keyana's who 27 years ago, so Keyana is ready Michelle said. Family has been very supportive and other family members continue visit as well. Keyana is one of 14 children, in the middle third, and a few siblings have . I let the family know that form setter steel pan forms is available 11/03. I will continue to visit.
[2023-04-30] MEDS: MORPHine 2 MG/ML SYR 4 MG IV/SC (21:09)
[2023-04-30] MEDS: Scopolamine 1 MG/3 DAYS PATCH TD (21:23)
[2023-05-01] MEDS: Ketorolac 15 MG/ML VIAL IVP (00:27)
[2023-05-01] MEDS: Atropine 1% Ophth Sol. 2 ML BTL SL (00:45)
--- NOTE | 2023-05-01 06:37 | PGE_ITS ---
Date of Service Date of service: 04/30/23 Time of Service: 18:19 Assessment and Plan Assessment and plan (1) Comfort measures only status: Status: Acute Assessment and plan: Comfort orders in place. PRN diphenhydramin added in event there does seem to be pruritus present; possibly from morphine? Palliative care consult appreciated. (2) Acute and chronic respiratory failure with hypoxia: Start date: 04/27/23 Status: Acute Assessment and plan: This is a 77-year-old lady with end-stage COPD becoming increasingly weak from lack of intake wanting not to be forced better force hydrated and not have testing done presenting with severe hypoxemia compared to baseline on home O2 at 2 L/min per nasal cannula and responding to 10 L/min nasal with nonrebreather and 89% pulse oximeter in the ED when more clear minded and stated her clear decisions to not have treatment. She is not be monitored presently on 2 L/min per nonrebreather. Subjective Subjective Interval history since last seen: CLERICAL SPECIALIST patient. Family members present. Appears calm, comfortable. Exam Narrative Exam Narrative: Gen: Lying supine. Appears comfortable. Facemask in place with 2L O2. Resp: Generally even and nonlabored. Objective Last Vital Signs Temp 37 C 04/27/23 20:55 Pulse 103 H 04/27/23 20:55 Resp 24 04/27/23 20:55 BP 159/77 H 04/27/23 20:55 Pulse Ox 89 L 04/28/23 08:33 Time Spent with Patient Time Spent with Patient: <25 minutes Time was spent: preparing to see the patient(eg.review tests), referring, communicating with other health multi care technician and care coordination
--- NOTE | 2023-05-01 12:52 | EXPE_ITS ---
Date of service: 05/01/23 Time of Service: 12:52 Discharge Plan Disposition Patient Disposition: Discharge Details Reason For Visit: ACute on Chronic Hypoxic Respiratory Failure,AMS Admit Date/Time: 04/27/23 19:35 Admit Provider: Sam Shah Attending Provider: Sam Shah Primary Care Provider: Raul Amador Hospital Course Hospital Course: This is a 77-year-old female patient who lives alone and adamantly does not wish to have others in her home to care for her wanting to stay home to .? She has no plan as to how to accomplish this except that she refuses care.? For the last 1 to 2 weeks she has not had much to eat or drink and had increased falls recently becoming weak and not able to get off the couch.? She did have a recent fall on her left side injuring her left upper extremity but having no other discomfort except that she could not stand because of weakness.? She denies any extremity pain.? She was found to be hypoxic at home on her usual 2 L/min per nasal cannula usual oxygen therapy which did respond to a higher flow of oxygen with nonrebreather.? She did have some confusion at home with her hypoxemia according to the family with decreased memory but in the ED was alert and orient ed x3 with oxygenation.? She refuses labs or imaging and actually wanted BACK SHOE OPERATOR measures and did not transfer to the hospital as per her DNR/DNI status.? As stated she did not have a good plan as accomplish this with family not allowed to live with her.? Family was often checking on her and has been finding her on the floor recently.? She does have incontinence of urine and stool because of inability to make it to the bathroom and as stated has had less intake with less output as well.? She is extremely weak and cannot lift her head off the bed verbalizing that she cannot go home alone at this time.? Her daughter is DPOA and has plans to speak to palliative care about hospice care at home if the patient survives this hospitalization.? She did receive some IV fluids which will not be continued and she will maintain an IV saline lock for comfort treatment.? She also will have a Charles catheter for comfort if she is incontinent of urine.? She has did refused any labs, imaging or interventions.? She was alert and oriented when making this restatement which is consistent with her CODE STATUS form and medical care wishes though there is some discrepancy and communication with her daughter who is the DPOA.? Her daughter was present during my conversation with the patient who was not responding appropriately and tearful stating that her mother will not not return home alone but to her home if she goes home on hospice. She was transitioned to comfort measures. The family decided that it would be in the patients best interest to remain in the hospital for end of life care. She was kept comfortable and on 05/01/23 at her was pronounced. ? Discharge Data Cause of : Chronic Respiratory Failure Discharge Date/Time-TO BE ENTERED AT DEPARTURE: 05/01/23 04:47 Discharge Comment: to Erik. Clarice to transport during day. Discharge Sum: Prov Provider Consults: 04/27/23 22:02 Palliative Care Consult [CONS] Routine Consultation Status:: Follow-up needed Clarification:: Manage/follow per spec. Reason for consult:: End-stage COPD with hypoxemia, fall at home and wants to be on BACK SHOE OPERATOR measures and hospice if survives to go home 04/28/23 10:01 Hospice Consult [CONS] Routine Consultation Status:: Contact made by MD Clarification:: Manage/follow per spec. Reason for consult:: End of life care. End-stage COPD Discharge Sum: Diag PCOD Cause of : Chronic Respiratory Failure Contributing Factors (1) Comfort measures only status: (2) Acute and chronic respiratory failure with hypoxia: Contributing factors: H/O tobacco abuse disorder Discharge Sum: Summary Date and Time Admission Date: 04/28/2309/09/23 19:35 Date of : 05/01/23 Time of : 02:35 Additional Data Confirmation of as documented by pronouncing clinician: no pulse Family: at bedside Attending/PCP notified?: Yes Attending Physician: Sam Pop Was code activated?: No Autopsy requested?: No credit union field examiner notified?: No Organ bank notified?: No Advance directives: Yes Hospice patient?: No
== END 2023-05-01 04:47 | disposition expired ==
LOC: ER 19:45 → MS 20:27
PROVIDERS: Admitting Provider Family Medicine; Emergency Provider Emergency Medicine; PCP Nurse Practitioner Family; Visit Provider Family Medicine
DX: J96.21 Acute and chronic respiratory failure with hypoxia (principal); R41.82 Altered mental status, unspecified; W19.XXXA Unspecified fall, initial encounter; Z51.5 Encounter for palliative care; R53.1 Weakness; Z99.81 Dependence on supplemental oxygen; J44.9 Chronic obstructive pulmonary disease, unspecified; I10 Essential (primary) hypertension; I25.10 Atherosclerotic heart disease of native coronary artery without angina pectoris; Z66 Do not resuscitate; E46 Unspecified protein-calorie malnutrition; Z68.21 Body mass index [BMI] 21.0-21.9, adult; E86.0 Dehydration; R41.3 Other amnesia; R91.1 Solitary pulmonary nodule; F17.210 Nicotine dependence, cigarettes, uncomplicated; E78.5 Hyperlipidemia, unspecified
CPT/HCPCS: 80053; 82805; 84145; 87040; 87635; 94640; 96361; 96374; 96375; 96376; 99285; 83605; 83735; 83880; 84443; 84484; 85025; 85610; 85730; 99223; 99231; 99238; G0378; J1200; J1885; J2270; J7620